=== PATIENT | male | born 1985 | race Caucasian/White ===

== ENCOUNTER 2017-07-11 09:43 | Outpatient (CLI) | payer OTHER ==
[~2017-07-11 09:43] MED LIST: BUPIVACAINE HCL/PF 2.5 MG/ML 10ML VIAL IV ONE; Lidocaine 1% 5ml(IM or SUTURE)(PAIN CLINIC) ONE; TRIAMCINOLONE ACETONID 40MG/ML VIAL ONE
--- NOTE | 2017-07-14 14:06 | HISTORY AND PHYSICAL REPORT ---
Dear Dr. Caldwell: HISTORY OF PRESENT ILLNESS: I had the opportunity of seeing Magdiel Bernstein today as an outpatient at [facility]. As you are aware, Mr. Bernstein is a 32-year- old white male who presents with complaints of right shoulder and bilateral knee pain. He has a chronic right shoulder bicipital tendon tear and rotator cuff dislocation. 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 He also tells me he has chronic bilateral knee pain and a history of osteoarthritis. He has been treated previously by Dr. Lucian Campbell and before then by Dr. Sergio Cisse in [place], [place], where he used to reside. He has apparently had an opiate use disorder and also a history of recreational drug use and his pain medication contract was terminated by Dr. Campbell for violation of his contract, which may in fact be the reason he is presenting to me today. He tells me that the knees are chronic in nature and hurt all the time and that he has had knee joint injections and he has had right knee arthroscopic surgery x2. The last one was in January of 2016. He has had injections which have been placed percutaneously without image guidance and have been minimally effective. He has taken multiple medications including nonsteroidal antiinflammatories. He is currently on buspirone and Cymbalta. He has failed physical therapy. PAST MEDICAL HISTORY: 1. History of COPD. 2. Chronic pain. 3. Depression. 4. Anxiety. 5. H. Pylori. 6. Stage 2 chronic kidney disease. 7. IV drug use, including sharing needles. PAST SURGICAL HISTORY: 1. Appendectomy. 2. Right shoulder repair with a biceps tendon repair in 2018. 3. Inguinal hernia repair x2. 4. Right knee arthroscopic surgery in 2000 and again in 2016. CURRENT DAILY MEDICATIONS: 1. Cymbalta 60 mg 1 time daily. 2. Buspirone 15 mg twice daily. ALLERGIES: 1. Ibuprofen. 2. Tylenol. 3. NSAIDs Due to his renal disease, he cannot take these. SOCIAL HISTORY: He is a current 1-qngz-fei-day smoker. He is a recovering alcoholic. He quit drinking in 2016. He has a history of recreational drug use including methamphetamine and IV drugs. He has been for the last 7 years. He has 3 children. He lives at home with his spouse. He completed the 8th grade. He is unemployed. He is not currently disabled. FAMILY HISTORY: Father is positive for diabetes. Mother is positive for thyroid disease and fibromyalgia and chronic pain. REVIEW OF SYSTEMS: In the last month or so, he reports a weight gain, swelling of his hands and feet, shortness of breath, feeling depressed or feeling anxious. Pain is worse with lying, standing, bending, sitting, walking, twisting, getting up from a chair, cough, sneeze, sexual activity, changes in weather, cold, stress, fatigue , touch, gradually worsens as the day progresses, getting up in the morning, or in any position for too long. Pain is improved with lying down, sitting, heat, and massage. PHYSICAL EXAMINATION: General: This is a well-nourished, well-developed white male in no apparent distress. Vital Signs: BP: 140/72, P: 68, R: 18. Oxygen saturation is 96% on room air. HEENT: Pupils are equal, round, and reactive to light and accommodation. Extraocular movements intact. No facial droop. Neck: There is full range of motion of the cervical spine. No evidence of adenopathy. Thyroid is nontender, not enlarged. Carotids are without bruits. Chest: Clear to auscultation bilaterally. Normal chest excursion. Heart: Regular rate and rhythm without murmur. Abdomen: Benign. Normoactive bowel sounds. Motor/sensory: Intact in the upper and lower extremities. Moves all extremities freely. Extremities: There is flexor compartment weakness of the right arm with a resistant contracture with 3/5 strength and evidence of previous arthroscopic surgery. There is otherwise full range of motion of the upper extremities. No evidence of a neural deficit. There is full range of motion of the lower extremities. Negative straight leg raise. Negative WALKER. Negative femoral nerve stretch. Reflexes are 2+ and equal at patellar tendon and Achilles tendon. There is crepitus in both knees. On examination of the knees under fluoroscopy, knee joints are well maintained. There is no loss of cartilage in either left or right knee. Minimal osteophytes can be appreciated on fluoroscopic exam. ASSESSMENT: 1. Chronic right shoulder and bilateral knee pain. 2. History of opiate use disorder. 3. Osteoarthritis of bilateral knees. PLAN: I have told Mr. Amandeep I would be glad to treat his knees today a fluoroscopically-directed injection of each knee and that I would not be in favor of prescribing or managing any opiate pain medication. Plan today for bilateral knee joint injections under fluoroscopic guidance. cc: Dr. Felix THAO
--- NOTE | 2017-07-14 14:12 | KNEE INJECTION WITH FLUORO ---
PROCEDURE: Bilateral knee joint injection with fluoroscopy. DESCRIPTION OF PROCEDURE: The risks and benefits of the injection were discussed with the patient, including the risks of infection, bleeding, and nerve injury. Furthermore, I discussed the risk of steroid exposure causing hyperglycemia, hypertension, osteoporosis, or increased infectious risks. The patient understood these risks and agreed to proceed. Consent was obtained. The patient was placed in the supine position on the fluoroscopy table with the knees slightly flexed. The left knee was prepared with Betadine scrubbing. AP and oblique fluoroscopic viewing was used for visualizing the knee joint. A 23- gauge, 3.5 spinal needle was introduced into the joint space from an anteromedial approach under direct fluoroscopic guidance. It was verified that there was no aspiration of fluid or blood. Omnipaque 240 myelogram dye was injected and noted to course within the joint space. The medication was subsequently injected into the joint space. The stylette was replaced into the needle and the needle was withdrawn from the knee. The skin was cleaned. This exact same procedure was repeated at the opposite knee joint. The patient tolerated the injection without complications. A band-aid was placed over the injection sites. The patient was monitored for 20 minutes following the procedure. Vital signs remained stable throughout this period. ASSESSMENT: 1. Chronic right shoulder and bilateral knee pain. 2. History of opiate use disorder. 3. Osteoarthritis of bilateral knees. PLAN: Bilateral knee joint injection with fluoroscopy. FOLLOW UP: Return to clinic if problems develop or worsen. cc: Dr. Felix THAO
== END 2017-07-11 09:44 ==
LOC: OUT 09:43
PROVIDERS: ATTEND Anesthesiology Pain Medicine
DX: M17.0 Bilateral primary osteoarthritis of knee (principal); M25.511 Pain in right shoulder
CPT/HCPCS: J3301; J3490; Q9966; 20610; 99213